=== PATIENT | female | born 2000 | race Caucasian/White ===

== ENCOUNTER 2024-07-08 12:08 | Emergency (ER) | payer OTHER, SELFPAY ==
[2024-07-08 12:17] VITALS: BP 111/71; PULSE 78; RESP 16; TEMP 36.5; O2SAT 99
[2024-07-08 12:34] LABS: Basophils Absolute Auto 0.1 K/mm3 (0.0-0.1); Basophils Percent Auto 0.3 % (0.2-1.2); Eosinophils Percent Auto 0.2 % (0-4.4); Hematocrit 44.4 % (37.0-47.0); Hemoglobin 15.8 g/dL (12.0-15.0); Immature Granulocyte Absolute 0.04 K/mm3 (0.00-0.031); Immature Granulocyte Percent A 0.3 % (0-0.5); Lymphocytes Absolute Auto 2.53 K/mm3 (0.9-3.2); Mean Corpuscular HGB Conc 35.6 g/dl (32-36); Mean Corpuscular Hemoglobin 31.2 pg (26-34); Mean Corpuscular Volume 87.6 fl (80-100); Mean Platelet Volume 9.8 fl (7.4-10.4); Monocytes Absolute Auto 0.7 K/mm3 (0.1-0.6); Monocytes Percent Auto 4.8 % (2.6-8.5); Neutrophils Absolute Auto 11.5 K/mm3 (1.3-6.7); Neutrophils Percent Auto 77.4 % (45.5-73.1); Platelet Count Result 341 k/mm3 (150-375); Red Blood Count 5.07 M/mm3 (4.2-5.4); Red Cell Distribution Width 11.9 % (11.5-14.5); White Blood Count 14.9 K/mm3 (4.5-10.0)
--- NOTE | 2024-07-08 12:37 | PC.NURSE ---
pt repots that they are unable to urinate at this time to do a bedside test. educated pt to use call light with any urge to provide urine for test.
[2024-07-08 12:46] LABS: Alanine Aminotransferase 15 U/L (6-35); Albumin Level 4.5 g/dL (3.5-5.1); Alkaline Phosphatase 64 U/L (38-126); Anion Gap 16 mmol/L (4-12); Aspartate Amino Transferase 17 U/L (14-36); Bilirubin,Total 0.9 mg/dL (0.2-1.3); Blood Urea Nitrogen 12 mg/dL (7-17); Calcium 9.5 mg/dL (8.4-10.2); Carbon Dioxide 17 mmol/L (22-30); Chloride 105 mmol/L (98-107); Estimated CRCL calculation 140 ml/min; Estimated Glomerular Filt Rate > 60; Glucose 82 mg/dL (65-110); Potassium 4.1 mmol/L (3.4-5.0); Sodium 138 mmol/L (137-145)
--- OUTSIDE RECORDS SUMMARY | 2024-07-08 12:46 | XMS_ITS | Encounter Summary ---
Author Organization [facility] Address [facility] [place] [address] Care Team Providers Care Senior Program Planner Name Role Phone None, Provider Primary Care Provider Unavaila ble Encounter Details Date Type Department Care Team (Late st Contact Info) Description 12/24/2002 Abstract [facility] Conversion Md, Generic Conversion, Social History Tobacco Use Types Packs/Day Years Used Date Smoking Tobacco: Never Assessed Comments Unknown Sex and Gender Information Value Date Recorded Sex Assigned at Not on file Legal Sex Female 4:46 PM CDT Gender Identity Not on file Sexual Orientation Not on file documented as of this encounter Plan of Treatment Not on file documented as of this encounter Visit Diagnoses Not on filedocumented in this encounter Additional Health Concerns Infection Onset Date Last Indicated Resolved Time COVID-19 Rule Out 06/08/2021 06/08/2021 06/08/2021 10:03 AM [employer] COVID-19 Rule Out 10/07/2021 10/07/2021 10/07/2021 7:57 AM CDT documented as of this encounter Care Teams Senior Program Planner Relationship Specialty Start Date End Date None, Provider, PCP - General 06/08/21 documented as of this encounter
--- OUTSIDE RECORDS SUMMARY | 2024-07-08 12:46 | XMS_ITS | Clinical Summary ---
Author Organization [facility] Address [facility] [place] [address] Care Team Providers Care Healthcare Architect Name Role Phone None, Provider MD Primary Care Provider Unavaila ble Allergies No known active allergies Medications ondansetron 4 MG disintegrating tablet Take 1 tablet (4 mg total) by mouth every 8 (eight) hours as needed. 10 tablet 2 Active Social History Tobacco Use Types Packs/Day Years Used Date Smoking Tobacco: Never Smokeless Tobacco: Never Alcohol Use Standard Drinks/Week Comments Never 0 (1 standard drink = 0.6 oz pur e alcohol) AUDIT-C Answer Date Recorded Frequency of Alcohol Consumption Never 07/27/2019 Average Number of Drinks Not on file 020 Frequency of Binge Drinking Not on file 12/2019 Comments Unknown Sex and Gender Information Value Date Recorded Sex Assigned at Not on file Legal Sex Female 4:46 PM CDT Gender Identity Not on file Sexual Orientation Not on file Last Filed Vital Signs Vital Sign Reading Time Taken Comments Blood Pressure 122/74 10/17/2023 8:30 AM CDT Pulse 79 10/17/2023 8:00 AM CDT Temperature 36.3 C (97.4 F) 10/17/2023 6:55 AM CDT Respiratory Rate 18 10/17/2023 8:00 AM CDT Oxygen Saturation 98% 10/17/2023 8:30 AM CDT Inhaled Oxygen Concentration - - Weight 102.1 kg (225 lb) 10/17/2023 6:55 AM CDT Height 167.6 cm (5' 6 ) 10/17/2023 6:55 AM CDT Body Mass Index 36.32 10/17/2023 6:55 AM CDT Plan of Treatment Health Maintenance Due Date Last Done Comments Annual Physical 2003 HPV Vaccines (1 - 3-dose series) 2015 Hepatitis C 2018 DTaP, Tdap and Td Vaccines (5 - Td or Tdap) 02/21/2022 02/22/2012, 04/25/2001, 2000, Additional history exists COVID-19 Vaccine ( season) 2024 Influenza Adult (#1) 2024 Cervical Cancer Screening Pap Smear (Age 21 to 29) Every 3 Years 09/20/2025 09/20/2022 Cervical Cancer Screening 09/20/2025 Hepatitis B Vaccines Completed 2000, 2000, 2000 Pneumococcal Vaccine: Pediatrics (0 to 5 Years) and At-Risk Patients (6 to 64 Years) Aged Out 04/25/2001, 2000, 2000 No longer eligible based on patient's age to complete this topic Meningococcal B Vaccine Aged Out No l onger eligible based on patient's age to complete this topic Meningococcal Vaccine Aged Out No thomas torito eligible based on patient's age to complete this topic RSV Immunizations Under 20 Months Aged Out No longer eligible based on patient's age to complete this topic Procedures Procedure Name Priority Date/Time Associated Diagnosis Comments CYTOPATH CERV/VAG THIN LAYER Routine 09/20/2022 8:33 AM CDT from Last 3 Months or Most Recently Relevant to Health Maintenance Results * Cytopath Cerv/Vag Thin Layer (09/20/2022 8:33 AM CDT) THIN PREP PAP [address] [id number] Department of Pathology Pathology Report CERVICAL/VAGINAL PAP SMEAR REPORT Name: KODY RONQUILLO Age: 12 2000 (Age: 22) Location: [facility] Sex: F Collected Date: 09/20/2022 [facility] #: [id number] Date Received: 09/22/2022 Date Reported: 09/22/2022 Provider: KADI YOST MD INTERPRETATION ABNORMAL RESULT CERVICAL/ENDOCER VICAL: SATISFACTORY FOR EVALUATION. ENDOCERVICAL/TRA NSFORMATION ZONE COMPONENT PRESENT. ATYPICAL SQUAMOUS CELLS OF UNDETERMINED SIGNIFICANCE. Electronically Signed Out ROXANNA Jorgensen, CT (ASCP) CLINICAL HISTORY Z12.4 PAP AND SILO OPERATOR SURGICAL HISTORY-UNKNOWN ThinPrep Pap Test Only Date of Last Menstrual Period: UNKNOWN Menstrual Status: Irregular SPECIMEN SUBMITTED CERVICAL/ENDOCER VICAL Specimen Received:1 Thin Prep Vial, Image Assisted Pap (SMD) Please note: The Pap smear is not a diagnostic test. It is a screening test. Negative results on combined screening (Pap test and HPV-DNA) have a high negative predictive value (99.1-100 percent) for cervical cancer. The pap test is not effective in detecting cervical adenocarcinoma. [facility] 09/20/2022 8:33 AM CDT 09/22/2022 8:33 AM CDT Comment:CERVICAL/ENDOCERVICA L us Kadi Marina MD PATHOLOGY/CYTOLOGY ORDERABL ES Final Result [facility] [address] [place] [address], from Last 3 Months or Most Recently Relevant to Health Maintenance [place] [address] [place] [address] Care Teams Healthcare Architect Relationship Specialty Start Date End Date None, Provider, PCP - General 06/08/21
[2024-07-08 13:09] LABS: Influenza A QL RT-PCR Negative (Negative); Influenza B QL RT-PCR Negative (Negative); RSV RNA, RT-PCR Negative (Negative); SARS-CoV-2 RNA PCR Negative (Negative)
[2024-07-08] MEDS: ONDANSETRON INJ 4 MG/2 ML VIAL IV PUSH (13:26)
[2024-07-08] MEDS: SODIUM CHLORIDE 0.9% IV 1,000 ML 999 ML IV CONT ×2 (13:26→14:17)
--- NOTE | 2024-07-08 13:33 | ED.GENADULT ---
HPI - General Adult General Chief complaint: Nausea/Vomiting/Diarrhea Stated complaint: n/v 6-7 weeks Time Seen by Provider: 07/08/24 12:21 History of Present Illness HPI narrative: [age] female presented to the emergency department for evaluation for nausea vomiting diarrhea that is been worsening over the last 2-3 days. Patient did have a positive test and suspect she is approximately 6-7 weeks with her last menstrual period being May 23. This is the patient's 2nd with her 1st being uneventful and occurring approximately 8 years ago. Patient does describe some epigastric and left upper quadrant cramping with emesis but denies any lower abdominal pain, patient denies any vaginal bleeding vaginal discharge. Patient denies any pain with urination. At time of evaluation patient appears to be an no distress. Related Data Allergies Allergy/AdvReac Type Severity Reaction Status Date / Time No Known Allergies Allergy Verified 07/08/24 12:09 Review of Systems Review of Systems: All systems reviewed & are unremarkable except as noted in HPI and below Exam Narrative: APPEARANCE: Well appearing, no pain, no distress, well-nourished. HEAD: normocephalic, atraumatic. EYES: PERRLA/EOMI, conjunctivae clear. NOSE: Normal no drainage EARS:TMS clear with good light reflex. THROAT: Pharynx clear, no exudate. NECK: Supple. No adenopathy, no masses. RESPIRATORY: Airway patent, respirations nonlabored. Clear to auscultation bilaterally, no rales, rhonchi, wheezing. CARDIOVASCULAR: Regular rate and rhythm without murmurs rubs or gallops. ABDOMINAL: Epigastric tenderness to palpation with no rebound or guarding, no suprapubic tenderness to palpation MUSCULOSKELETAL: Moves all extremities. Strength/ROM intact, No edema, No calf tenderness. NEURO: Alert. Cranial nerves II through XII intact. Good gait. Good coordination SKIN: Warm, dry. Normal Color Course Vital Signs Vital signs: Vital Signs Temperature 97.7 F 07/08/24 12:17 Pulse Rate 78 07/08/24 12:17 Respiratory Rate 16 07/08/24 12:17 Blood Pressure 111/71 07/08/24 12:17 Pulse Oximetry 99 07/08/24 12:17 Oxygen Delivery Room Air 07/08/24 12:17 Temperature 97.7 F 07/08/24 12:17 Pulse Rate 77 07/08/24 14:17 Respiratory Rate 18 07/08/24 14:17 Blood Pressure 109/73 07/08/24 14:17 Pulse Oximetry 100 07/08/24 14:17 Oxygen Delivery Room Air 07/08/24 12:17 Medical Decision Making MDM Narrative Medical decision making narrative: [age] old female that is approximately 6-7 weeks present to the emergency department for evaluation for nausea and vomiting and diarrhea for the past 3 days. Patient does have a leukocytosis of 14.9 and hemoglobin of 15.8. Patient does have an anion gap of 16 with normal BUN and creatinine. Patient has no elevated glucose. Patient is not diabetic. Patient does have +4 ketones in her urine along with high white blood cells and high bacteria. Patient was negative for influenza COVID and RSV. Patient is being started on antibiotics for suspected underlying urinary tract infection. Patient is being treated with 2 L of IV fluids. Differential Diagnosis Differential Diagnosis: Urinary tract infection, dehydration, COVID, RSV, influenza, hyperemesis gravidarum Vital Signs Vital Signs: Vital Signs Temperature 97.7 F 07/08/24 12:17 Pulse Rate 78 07/08/24 12:17 Respiratory Rate 16 07/08/24 12:17 Blood Pressure 111/71 07/08/24 12:17 Pulse Oximetry 99 07/08/24 12:17 Oxygen Delivery Room Air 07/08/24 12:17 Temperature 97.7 F 07/08/24 12:17 Pulse Rate 77 07/08/24 14:17 Respiratory Rate 18 07/08/24 14:17 Blood Pressure 109/73 07/08/24 14:17 Pulse Oximetry 100 07/08/24 14:17 Oxygen Delivery Room Air 07/08/24 12:17 Lab Data Lab results reviewed: Yes I reviewed the patient's lab results. 07/08/24 12:28 07/08/24 12:28 Labs: Lab Results 07/08/24 07/08/24 07/08/24 Range/Units 12:28 13:39 13:40 WBC 14.9 H (4.5-10.0) K/mm3 RBC 5.07 (4.2-5.4) M/mm3 Hgb 15.8 H (12.0-15.0) g/dL Hct 44.4 (37.0-47.0) % MCV 87.6 (80-100) fl MCH 31.2 (26-34) pg MCHC 35.6 (32-36) g/dl RDW 11.9 (11.5-14.5) % Plt Count 341 (150-375) k/mm3 MPV 9.8 (7.4-10.4) fl Immature Gran % (Auto) 0.3 (0-0.5) % Neut % (Auto) 77.4 H (45.5-73.1) % Lymph % (Auto) 17.0 L (18.3-44.2) % Jack % (Auto) 4.8 (2.6-8.5) % Eos % (Auto) 0.2 (0-4.4) % Baso % (Auto) 0.3 (0.2-1.2) % Lymph # (Auto) 2.53 (0.9-3.2) K/mm3 Jack # (Auto) 0.7 H (0.1-0.6) K/mm3 Eos # (Auto) 0.0 (0-0.3) K/mm3 Baso # (Auto) 0.1 (0.0-0.1) K/mm3 Abs Immat Gran (auto) 0.04 H (0.00-0.031) K/mm3 Absolute Neuts (auto) 11.5 H (1.3-6.7) K/mm3 Absolute Nucleated RBC 0.000 (0.0-0.012) K/mm3 Nucleated RBC % 0.0 (0.0-0.2) % Sodium 138 (137-145) mmol/L Potassium 4.1 (3.4-5.0) mmol/L Chloride 105 (98-107) mmol/L Carbon Dioxide 17 L (22-30) mmol/L Anion Gap 16 H (4-12) mmol/L BUN 12 (7-17) mg/dL Creatinine 0.60 L (0.7-1.0) mg/dL Estim Creat Clear Calc 140 ml/min Estimated GFR > 60 (59 - ) Glucose 82 (65-110) mg/dL Calcium 9.5 (8.4-10.2) mg/dL Total Bilirubin 0.9 (0.2-1.3) mg/dL AST 17 (14-36) U/L ALT 15 (6-35) U/L Alkaline Phosphatase 64 (38-126) U/L Total Protein 8.0 (6.3-8.2) g/dL Albumin 4.5 (3.5-5.1) g/dL Beta HCG, Quant 09572.00 mIU/ML Urine Color Dark yellow (Yellow) Urine Appearance Cloudy H (Clear) Urine pH 5.5 (5.0-9.0) Ur Specific [place] 1.031 (1.001-1.035) Urine Protein 1+ H (Negative) mg/dL Urine Glucose (UA) Negative (Negative) mg/dL Urine Ketones 4+ H (Negative) mg/dL Ur Blood (Man) Negative (Negative) Urine Nitrate Negative (Negative) Urine Bilirubin Negative (Negative) Urine Urobilinogen 1.0 (<2.0) mg/dL Leukocyte Esterase Rfl 2+ H (Negative) PATRICK/UL Urine RBC 0-2 (0-2) /hpf Urine WBC 51-100 H (0-3) /hpf Ur Squamous Epith Cells Many H (Few) /hpf Urine Bacteria 4+ H /hpf Urine Casts 0-2 POC Urine HCG, Qual Positive (Negative) Influenza A (RT-PCR) Negative (Negative) Influenza B (RT-PCR) Negative (Negative) RSV (RT-PCR) Negative (Negative) SARS-CoV-2 RNA (RT-PCR) Negative (Negative) Discharge Plan Discharge Clinical Impression: Nausea vomiting and diarrhea, Urinary tract infection Patient Disposition: Home, Self-Care Condition: Stable Instructions: Antibiotic Form, Urinary Tract Infection in Women (DC), Clear Liquid Diet (ED), Acute Nausea and Vomiting (ED) Additional Instructions: Clear liquid diet for the next 1-3 days. Zofran as needed for nausea control. Antibiotic as directed for the urinary tract infection. Have close follow-up with your primary care physician and with OB Gyne. If you have any worsening symptoms then please call or return to the emergency department. Patient Language: Pashto Prescriptions: New cephalexin 500 mg capsule 500 mg PO Q8H 7 Days Qty: 21 0RF Follow-up/Referrals: UNKNOWN,DOCTOR [Primary Care Provider] -
[2024-07-08 13:44] LABS: BEDSIDEPREGUCG Positive (Negative)
[2024-07-08 13:51] LABS: Add Urine Microscopic? YES; Appearance Urine Cloudy (Clear); Bacteria Urine 4+ /hpf; Bilirubin Urine Negative (Negative); Blood Urine Negative (Negative); Color Urine Dark Yellow (Yellow); Glucose Urine UA Negative (Negative); Ketones Urine 4+ mg/dL (Negative); Leukocyte Esterase Ur 2+ LEU/UL (Negative); Nitrate Urine Negative (Negative); Non Pathogenic Casts 0-2; Protein Urine 1+ mg/dL (Negative); RBC Urine 0-2 /hpf (0-2); Specific Grav Ur 1.031 (1.001-1.035); Squamous Epithelial Cell Urine Many /hpf (Few); WBC Urine 51-100 /hpf (0-3); pH Urine 5.5 (5.0-9.0)
[2024-07-08 14:17] VITALS: BP 109/73; PULSE 77; RESP 18; O2SAT 100
== END 2024-07-08 15:40 | disposition home or self-care (01) ==
PROVIDERS: Physician Assistant; Emergency Provider Emergency Medicine
DX: O21.0 Mild hyperemesis gravidarum (principal); Z3A.00 Weeks of gestation of pregnancy not specified; O23.40 Unspecified infection of urinary tract in pregnancy, unspecified trimester; N39.0 Urinary tract infection, site not specified; Z20.822 Contact with and (suspected) exposure to COVID-19
CPT/HCPCS: 36415; 80053; 81001; 81025; 84702; 85025; 87637; 96361; 96365; 96375; 99284; J0696; J2405; J7030

== ENCOUNTER 2024-07-31 09:36 | Emergency (ER) | payer OTHER, SELFPAY ==
[2024-07-31] VITALS (13 sets, daily range): BP systolic 110–128; BP diastolic 68–78; PULSE 56–89; RESP 14–17; TEMP 36.4; O2SAT 97–100
--- NOTE | ~2024-07-31 | XR_ITS ---
EXAMINATION: XR chest 1V portable DATE: 07/31/2024 12:30 INDICATION: Hematemesis. . TECHNIQUE: A single frontal view of the chest was obtained. COMPARISON: None. FINDINGS: There is no pneumonia, pleural effusion, or pneumothorax. The heart size is normal. IMPRESSION: 1. No acute cardiopulmonary disease. Reviewed, dictated and finalized at location B.
[2024-07-31 10:19] LABS: Basophils Percent Auto 0.4 % (0.2-1.2); Eosinophils Percent Auto 0.3 % (0-4.4); Hematocrit 40.7 % (37.0-47.0); Hemoglobin 14.2 g/dL (12.0-15.0); Immature Granulocyte Absolute 0.05 K/mm3 (0.00-0.031); Immature Granulocyte Percent A 0.4 % (0-0.5); Mean Corpuscular HGB Conc 34.9 g/dl (32-36); Mean Corpuscular Hemoglobin 30.6 pg (26-34); Mean Corpuscular Volume 87.7 fl (80-100); Mean Platelet Volume 9.7 fl (7.4-10.4); Monocytes Absolute Auto 0.4 K/mm3 (0.1-0.6); Monocytes Percent Auto 3.4 % (2.6-8.5); Neutrophils Absolute Auto 8.8 K/mm3 (1.3-6.7); Neutrophils Percent Auto 78.5 % (45.5-73.1); Platelet Count Result 267 k/mm3 (150-375); Red Blood Count 4.64 M/mm3 (4.2-5.4); Red Cell Distribution Width 12.4 % (11.5-14.5); White Blood Count 11.2 K/mm3 (4.5-10.0)
[2024-07-31 10:22] LABS: BEDSIDEPREGUCG Positive (Negative)
[2024-07-31 10:31] LABS: Alanine Aminotransferase 17 U/L (6-35); Albumin Level 4.2 g/dL (3.5-5.1); Alkaline Phosphatase 55 U/L (38-126); Anion Gap 9 mmol/L (4-12); Aspartate Amino Transferase 17 U/L (14-36); Bilirubin,Total 0.6 mg/dL (0.2-1.3); Blood Urea Nitrogen 7 mg/dL (7-17); Calcium 9.3 mg/dL (8.4-10.2); Carbon Dioxide 21 mmol/L (22-30); Chloride 106 mmol/L (98-107); Estimated CRCL calculation 143 ml/min; Estimated Glomerular Filt Rate > 60; Glucose 80 mg/dL (65-110); Lipase 89 U/L (23-300); Potassium 4.1 mmol/L (3.4-5.0); Sodium 136 mmol/L (137-145)
[2024-07-31 10:33] LABS: Add Urine Microscopic? YES; Appearance Urine Cloudy (Clear); Bacteria Urine 3+ /hpf; Bilirubin Urine Negative (Negative); Blood Urine Negative (Negative); Color Urine Yellow (Yellow); Glucose Urine UA Negative (Negative); Ketones Urine 2+ mg/dL (Negative); Leukocyte Esterase Ur 3+ LEU/UL (Negative); Nitrate Urine Negative (Negative); Non Pathogenic Casts 0-2; Protein Urine Trace mg/dL (Negative); RBC Urine 0-2 /hpf (0-2); Specific Grav Ur 1.024 (1.001-1.035); Squamous Epithelial Cell Urine Moderate /hpf (Few); pH Urine 6.5 (5.0-9.0)
--- OUTSIDE RECORDS SUMMARY | 2024-07-31 10:58 | XMS_ITS | Clinical Summary ---
Author Organization [facility] Address [facility] [place] [address] Care Team Providers Care Straw Baler Name Role Phone None, Provider MD Primary [...] (09/20/2022 8:33 AM CDT) THIN PREP PAP [address] [address] Department of Pathology Pathology Report CERVICAL/VAGINAL PAP SMEAR REPORT Name: KODY RONQUILLO Age: 12 2000 (Age: 22) Location: [facility] Sex: F Collected Date: 09/20/2022 [facility] #: [id number] Date Received: 09/22/2022 Date Reported: 09/22/2022 Provider: KADI YOST MD INTERPRETATION ABNORMAL RESULT CERVICAL/ENDOCER VICAL: SATISFACTORY FOR EVALUATION. ENDOCERVICAL/TRA NSFORMATION ZONE COMPONENT PRESENT. ATYPICAL SQUAMOUS CELLS OF UNDETERMINED SIGNIFICANCE. Electronically Signed Out ROXANNA Jorgensen, CT (ASCP) CLINICAL HISTORY Z12.4 PAP AND DIETARY COOK SURGICAL HISTORY-UNKNOWN ThinPrep Pap Test Only Date [...] is not effective in detecting cervical adenocarcinoma. [facility] 09/20/2022 8:33 AM CDT 09/22/2022 8:33 AM CDT Comment:CERVICAL/ENDOCERVICA L us Kadi Marina MD PATHOLOGY/CYTOLOGY ORDERABL ES Final Result [facility] [address] [place] [address], from Last 3 Months or Most Recently Relevant to Health Maintenance [place] [address] [place] [address] Care Teams Straw Baler Relationship Specialty Start Date End Date None, Provider, PCP - General 06/08/21
--- OUTSIDE RECORDS SUMMARY | 2024-07-31 10:58 | XMS_ITS | Data Portability ---
Author Organization [facility] Address [address] [place] [address] Assessment Encounter Date Assessment Date Assessment LastModified by Organization Details LastModified Time 07/29/2024 07/29/2024 Patient is ___weeks . Discussed plan. [email or web address] Not available 07/29/2024 11:23:38 Plan of Treatment Reminders Order Date Submit Date Provider Last Modified By Organization Details Last Modified Time Details Appointments U/S OB FIRST LOOK 2024 02:30P M ULTRASOUND Not available Not available Not available OB NEW 2024 03:00P M Tuan JONES MD Not available Not available Not available Lab None recorde d. Referral None recorde d. Procedures None recorde d. Surgeries None recorde d. Imaging None recorde d. Medication Orders ondanse ranjan 8 mg disinte grating tablet 2024 025 [id number], [address], [place], [id number], 07/29/2024 11:56:05 Patient TargetsNo targets recorded. Patient InstructionsNo instructions recorded. Reason for Referral None Reported. Results Created Date Observation Date Name Description Value Unit Range Abnormal Flag Note LastModifiedBy Organization Detail LastModifiedTime 07/30/19 25 07/29/2024 US, obste tric, follo w-up No observ ation record ed. [facility] [id number], [place], [address], 07/29/2024 16:55:01 Result Notes None recorded. Procedures Surgical History Date Name Laterality Status Provider Name and Address Organization Details Recorded Time 06/30/2016 Date of Last Pap Smear completed NICHOLAS Christiansen [facility] 07/29/2024 11:22:11 Imaging Results Imaging Date Name Status LastModified by Organiz ation Details LastModified Time 07/29/2024 US, obstetric, follow-up completed Melissa [address], [place], [address], 07/29/2024 16:55:01 Procedure Notes None recorded. Medical Equipment None Reported. Allergies No known drug allergies Medications Name Sig Start Date Stop Date Status Note LastModified by Organization Details LastModified Time ondansetron HCl 4 mg tablet TAKE 1 TABLET ORAL ROUTE EVERY 8 HOURS 07/29 completed Not Available Not Available Not Available metronidazo le 500 mg tablet TAKE 1 TABLET BY MOUTH TWICE A DAY FOR 7 DAYS 07/29 completed Not Available Not Available Not Available ondansetron 8 mg disintegrat ing tablet Place 1 tablet twice a day by transling ual route. 2024 active Not Available Not Available Not Avai lable cephalexin 500 mg capsule 500 MG ORALLY EVERY 8 HOURS FOR 7 DAYS 07/29 completed Not Available Not Available Not Available ibuprofen 400 mg tablet TAKE 1 TABLET BY MOUTH EVERY 6 HOURS NEEDED FOR PAIN. 07/29 completed Not Available Not Available Not Available active Not Available Not Avai lable Not Available Vitals Date Recorded Body weight Systolic blood pressure Diastolic blood pressure Provider Name and Address Organization Details Last Updated DateTime 07/29/2024 34388.44 g 110 mm[Hg] 72 mm[Hg] NICHOLAS Christiansen [facility] 07/29/2024 11:21:42 Date Recorded Body mass index (BMI) Body height Provider Name and Address Organization Details Last Updated DateTime 07/29/2024 32.1 kg/m2 170.18 cm Meghan Pitts [facility] 07/29/2024 11:25:05 Social History Question Answer Notes LastModified by Organizat ion Details LastModified Time Tobacco Smoking Status Never Smoker NICHOLAS Little null, [facility] 07/29/2024 11:11:22 Are You Blind Or Do You Have Difficulty Seeing? No [email or web address] Information n ot available 07/29/2024 In The 14 Days Before Symptom Onset, Have You Had Close Contact With A Laboratory-confirm ed COVID-19 While That Case Was Ill? No [email or web address] Information n ot available 07/29/2024 In The 14 Days Before Symptom Onset, Have You Had Close Contact With A Person Who Is Under Investigation For COVID-19 While That Person Was Ill? No [email or web address] Information not available 07/29/2024 Have You Been To An Area Known To Be High Risk For COVID-19? No [email or web address] Information not available 07/29/2024 Are You Deaf Or Do You Have Serious Difficulty Hearing? No [email or web address] Information not available 07/29/2024 What Type Of Diet Are You Following? REGULAR [email or web address] Information n ot available 07/29/2024 What Is The Highest Grade Or Level Of School You Have Completed Or The Highest Degree You Have Received? [id number] [email or web address] Information not available 07/29/2024 Are There Any Guns Present In Your Home? No [email or web address] Information not available 07/29/2024 Do You Use Your Seat Belt Or Car Seat Routinely? Yes [email or web address] Information not available 07/29/2024 Are You Sexually Active? Yes [email or web address] Information not available 07/29/2024 Do You Have Smoke And Carbon Monoxide Detectors In Your Home? Yes [email or web address] Information not available 07/29/2024 Do You Feel Stressed (tense, Restless, Nervous, Or Anxious, Or Unable To Sleep At Night)? [id number] Information not available 07/29/2024 Do You Use Sunscreen Routinely? Yes Information not available 07/29/2024 Sex: Unknown Functional Status Question Answer Note LastModified by Organizat ion Details LastModified Time Do you have difficulty walking or climbing stairs? No [email or web address] Information not available 07/29/2024 Are you able to walk? YESWOREST [email or web address] Information not available 07/29/2024 Are you able to care for yourself? Yes [email or web address] Information not available 07/29/2024 Do you have difficulty dressing or bathing? Yes [email or web address] Information not available 07/29/2024 What is your exercise level? Occasional Information not available 07/29/2024 Mental Status None recorded. Family History Relationship Description Onset Age of this Age Resolved Age Notes LastModified by Organization Details LastModified Time Sister Asthma [email or web address] Not available 07/29/2024 10:58:53 Maternal Grandmother Asthma [email or web address] Not available 07/19 10:58:51 Maternal Grandmother Malignant tumor of breast [email or web address] Not available 2024 11:01:13 Maternal Grandfather Hypertensive disorder [email or web address] Not available 2024 11:01:30 Maternal Grandfather Hypercholest erolemia [email or web address] Not available 2024 11:01:40 Medical History Condition Response Allergies (Food, seasonal, environmental ) N Other N Breast Cancer N Drug/Latex Allergies/Reactions N Blood Transfusion N Dermatologic Disorders N Lung Disease N Defects or Inherited Disease N Breast Problem N Gestational Diabetes N Hematologic disorders N Anesthesia Complications N History of STI N Deep Vein Thrombosis N Polycystic ovary syndrome N Anxiety Disorder N Autoimmune disease N Arthritis N Infertility N Polyps N Acid Reflux (GERD) N History of abnormal pap N Cancer N Stroke N Varicosities N Neurologic/Epilepsy N Endometriosis N High Cholesterol N Headaches N Fibromyalgia N Kidney Disease N Heart Problems N Kidney or Bladder Problems N Thyroid Problems N GI Problems N Eating Disorder N Anemia N Art (IVF or FET) N Psychiatric Illness N Ovarian Cancer N Diabetes N Pulmonary (TB, Asthma) N Hepatitis/Liver Disease N No Past Medical History Y Eczema N Urinary Tract Infection N Abuse/Domestic Violence N Asthma N Trauma/Violence N Depression/ depression N Heart Disease N Pre-Eclampsia N Hypertension N Osteoporosis N Thrombophilias N Gynecological History Statement/Question Response Abnormal Pap N Date of Last Mammogram Flow Moderate Date of LMP 05/23/2024 Was last menstrual period normal Y STIs/STDs N HPV Vaccine N Colposcopy Current Control Method Age at First Child 16 Are cycles usually normal Y Frequency of Cycle (Q days) 28 Sexually Active? Y Menses Monthly Y Age of first menstrual cycle 11 Date of Last Pap Smear 06/30/2016 Sexual Problems? N LMP Definite Obstetrics History GPAL:G 1 P 1 0 0 1 Type Value Full Term 1 Living 1 Total 1 Past Encounters Encounter ID Performer Location Encounter Start Date Encounter Closed Date Diagnosis/Indication Diagnosis SNOMED-CT Code Diagnosis ICD10 Code Diagnosis Note [id number] Sabine Nunn [facility] [address] [address] 07/29/2024 10:33:16 07/29/2024 11:08:59 [id number] Anil Jones MD [facility] [address] [address] 07/29/2024 10:36:48 07/29/2024 12:14:56 Nausea and vomiting 38998515 R11.2 Amenorrhea 77387608 N91. 2 this patient is a 24-year-ol d female who presents for amenorrhea . She is a positive test. Ultrasound revealed a 1st trimester gestation. Patient has no complaints . We talked about early care. Talked about genetic screening. We talked about her ultrasound results. We talked about the 12 week ultrasound that has genetic screening components . She was given recommenda tions on exercise, diet, over-the-c ounter medication s. We reviewed her obstetric history. We reviewed her medical history. We reviewed her social history. She will begin routine care at her next visit. Health Concerns Section Related Observation LastModified by Organization Detai ls LastModified Time None Recorded Concern Status LastModified by Organization Details LastModified Time None Recorded Advance Directives Directive None Recorded Payers Encounter Date Sequence Insurance Name Policy Number Policy Dye Covered Member ID Dye Member ID Guarantor Name 07/29/2024 1 [employer] [id number] Kathi Bee [id number] Kathi Bee 07/29/2024 1 [employer] [id number] Kathi Bee [id number] Kathi Bee Notes Date Note Type Note Provider Name and Address Organization Details Recorded Time 07/29/2024 text/html this patient is a 24-year-old female who presents for amenorrhea. She is a positive test. Ultrasound revealed a 1st trimester gestation. Patient has no complaints. We talked about early care. Talked about genetic screening. We talked about her ultrasound results. We talked about the 12 week ultrasound that has genetic screening components. She was given recommendations on exercise, diet, [id number]-ioipvax medications. We reviewed her obstetric history. We reviewed her medical history. We reviewed her social history. She will begin routine care at her next visit. Anil Jones MD [address], [place], [address], [place] [facility] 07/29/2024 12:10:31 OBGyn Episode Ob Episode Information Episode Created Date Number of Fetuses Patient Bloodtype Patient rh Status Prepregnancy Weight lbs Domestic Partner Domestic Partner Phone Father Name Bog Worker Status 07/30/19 25 1 CLOSED Fetus Data First Name Last Name Admitted to NICU Weight (g) Sex Living Outcome Pediatric Complications Fetus ID Race Codes Race Delivery Type 3798.83 3 F Full Term [id number] Vaginal Delivery Demond Calculation Initial Demond Date Initial Exam Date Initial Exam Provider Initial Ultrasound Date Last Menstrual Period Date Ultra Sound Weeks Gestation 0 Eighteen To Twenty Week Demond Update Ultra Sound Date Fundal Height At Umbil Quickening Date Ultra Sound Latest Weeks Gestation Final Demond Confirmed By Final Demond Confirmed Date Final Demond Date Ultra Sound Latest Days Gestation 0 0 Menstrual History Last Menstrual Date Menses Monthly On Bcp Conception Prior Menses Frequency Hcg Plus Date Menarche Onset Age Delivery Information Delivery Date Delivery Type Labor Anesthesia Weeks Gestation Incision Type Labor Labor Length Hrs Delivered By Post Complications Tubal Sterilization Discharge Date Comments 7 41 Discharge Information Feeding Method Contraceptive Method Maternal HG B and HCT Levels
--- OUTSIDE RECORDS SUMMARY | 2024-07-31 10:58 | XMS_ITS | Encounter Summary ---
Author Organization [facility] Address [facility] [place] [address] Care Team Providers Care Genetic Technologist Name Role Phone None, Provider Primary Care Provider Unavaila ble Encounter Details Date Type Department Care Team (Late st Contact Info) Description 12/24/2002 Abstract [facility] Conversion Md, Generic Conversion, Social History [...] Rule Out 06/08/2021 06/08/2021 06/08/2021 10:03 AM FERMENTATION SCIENTIST COVID-19 Rule Out 10/07/2021 10/07/2021 10/07/2021 7:57 AM CDT documented as of this encounter Care Teams Genetic Technologist Relationship Specialty Start Date End Date None, Provider, PCP - General 06/08/21 documented as of this encounter
--- NOTE | 2024-07-31 11:43 | ED_ITS ---
HPI - Abdominal Pain General Chief Complaint: Abdominal Pain Stated Complaint: 9 weeks preg, abd cramping, vomiting Time Seen by Provider: 07/31/24 10:18 History of Present Illness HPI narrative: 25-year-old female who is , currently 9 weeks presents to the emergency department for epigastric abdominal pain, nausea vomiting. Patient states she has had morning sickness throughout this and is not on normal for her. She states she had an episode of vomiting earlier today with a dime-sized amount of bright red blood which concerned her and prompted her to come to the ER. She states since then she has had vomiting that has not had any blood in it, no coffee-ground emesis. Denies melena or hematochezia. She is reporting some epigastric abdominal discomfort and nausea. Her OBGYN, Dr. Castellon, prescribed her Zofran but she has not taken this yet. She denies lower abdominal pain or cramping, vaginal bleeding or leakage of fluids, dysuria or hematuria. States she had a ultrasound 2 days ago which confirmed an IUP show no complications. Denies chest pain or dyspnea. Related Data Allergies Allergy/AdvReac Type Severity Reaction Status Date / Time No Known Allergies Allergy Verified 07/31/24 10:04 Review of Systems 2 Review of Systems: All systems reviewed & are unremarkable except as noted in HPI and below Exam 2 Narrative: GENERAL: Well-appearing, well-nourished, and in no acute distress. HEAD: Normocephalic, atraumatic. EYES: EOMI. ENT: Nares clear, no rhinorrhea or epistaxis. Mucous membranes moist. NECK: Supple. CHEST: Clear to auscultation. No respiratory distress. HEART: Regular rate and rhythm. No murmur heard. Normal peripheral pulses. ABDOMEN: Normoactive bowel sounds. Abdomen soft with minimal tenderness in epigastrium. No rebound or rigidity. No CVA tenderness. EXTREMITIES: Normal range of motion. No edema. 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 NEURO: No focal deficits. Alert and oriented x3 Course Vital Signs Vital signs: Vital Signs Temperature 97.6 F 07/31/24 09:42 Pulse Rate 89 07/31/24 09:42 Respiratory Rate 17 07/31/24 09:42 Blood Pressure 128/76 07/31/24 09:42 Pulse Oximetry 100 07/31/24 09:42 Oxygen Delivery Room Air 07/31/24 09:42 Temperature 97.6 F 07/31/24 09:42 Pulse Rate 65 07/31/24 12:51 Respiratory Rate 16 07/31/24 12:51 Blood Pressure 110/68 07/31/24 11:41 Pulse Oximetry 99 07/31/24 12:51 Oxygen Delivery Room Air 07/31/24 09:42 MDM - Abdominal Pain MDM Narrative Medical decision making narrative: 24-year-old female who is currently 9 weeks presents to emergency department for nausea and vomiting. Patient had 1 dime-sized amount of hemoptysis this morning. She has vomited since then and has not noticed any blood. Denies melena or hematochezia. Vital signs are stable. She is afebrile and nontoxic appearing. She is endorsing some epigastric abdominal discomfort. She does state that she had a ultrasound 2 days ago which confirmed an IUP and showed no complications. I do not feel we need to repeat the ultrasound today given she has no lower abdominal pain, vaginal bleeding leakage of fluids. Will obtain lab work and provide IV fluids, GI cocktail Pepcid re-evaluate. Shared decision making regarding obtaining a chest x-ray to evaluate for source of hemoptysis which shows findings concerning for for [place] pneumomediastinum. Patient agreeable with this. CBC with nonspecific leukocytosis of 11.2 which is likely reactive, normal hemoglobin of 14.2, no bandemia. Chemistries are largely unremarkable. Lipase normal. Chest x-ray shows no acute cardiopulmonary disease, no evidence of pneumomediastinum. UA indicative of UTI with 11-20 wbc's, 3+ leuk esterase, 3+ bacteriuria, also has 2+ ketones. Patient received IV fluids, GI cocktail and Pepcid with significant improvement. She is resting comfortably in exam bed tolerating p.o. intake. She has had no vomiting or episodes of hemoptysis during her over 3 hour stay in the emergency department. Given her reported frequent nausea and vomiting with this , I suspect the dime-sized amount of hemoptysis she noted today was due to a Thuy-Knight tear or possible underlying esophagitis/gastritis. Will prescribe Pepcid and have her follow-up closely with her OBGYN. She is prescribed Zofran by her Ob which I encouraged her to begin taking. Discussed increase hydration and return precautions. She is agreeable to plan verbalized understanding. Discharged in stable condition. Lab Data 07/31/24 10:13 07/31/24 10:13 Labs: Lab Results 07/31/24 07/31/24 07/31/24 Range/Units 10:13 10:19 10:20 WBC 11.2 H (4.5-10.0) K/mm3 RBC 4.64 (4.2-5.4) M/mm3 Hgb 14.2 (12.0-15.0) g/dL Hct 40.7 (37.0-47.0) % MCV 87.7 (80-100) fl MCH 30.6 (26-34) pg MCHC 34.9 (32-36) g/dl RDW 12.4 (11.5-14.5) % Plt Count 267 (150-375) k/mm3 MPV 9.7 (7.4-10.4) fl Immature Gran % (Auto) 0.4 (0-0.5) % Neut % (Auto) 78.5 H (45.5-73.1) % Lymph % (Auto) 17.0 L (18.3-44.2) % [place] % (Auto) 3.4 (2.6-8.5) % Eos % (Auto) 0.3 (0-4.4) % Baso % (Auto) 0.4 (0.2-1.2) % Lymph # (Auto) 1.90 (0.9-3.2) K/mm3 [place] # (Auto) 0.4 (0.1-0.6) K/mm3 Eos # (Auto) 0.0 (0-0.3) K/mm3 Baso # (Auto) 0.0 (0.0-0.1) K/mm3 Abs Immat Gran (auto) 0.05 H (0.00-0.031) K/mm3 Absolute Neuts (auto) 8.8 H (1.3-6.7) K/mm3 Absolute Nucleated RBC 0.000 (0.0-0.012) K/mm3 Nucleated RBC % 0.0 (0.0-0.2) % Sodium 136 L (137-145) mmol/L Potassium 4.1 (3.4-5.0) mmol/L Chloride 106 (98-107) mmol/L Carbon Dioxide 21 L (22-30) mmol/L Anion Gap 9 (4-12) mmol/L BUN 7 D (7-17) mg/dL Creatinine 0.59 L (0.7-1.0) mg/dL Estim Creat Clear Calc 143 ml/min Estimated GFR > 60 (59 - ) Glucose 80 (65-110) mg/dL Calcium 9.3 (8.4-10.2) mg/dL Total Bilirubin 0.6 (0.2-1.3) mg/dL AST 17 (14-36) U/L ALT 17 (6-35) U/L Alkaline Phosphatase 55 (38-126) U/L Total Protein 7.0 (6.3-8.2) g/dL Albumin 4.2 (3.5-5.1) g/dL Lipase 89 (23-300) U/L Urine Color Yellow (Yellow) Urine Appearance Cloudy H (Clear) Urine pH 6.5 (5.0-9.0) Ur Specific [place] 1.024 (1.001-1.035) Urine Protein Trace (Negative) mg/dL Urine Glucose (UA) Negative (Negative) mg/dL Urine Ketones 2+ H (Negative) mg/dL Ur Blood (Man) Negative (Negative) Urine Nitrate Negative (Negative) Urine Bilirubin Negative (Negative) Urine Urobilinogen 1.0 (<2.0) mg/dL Leukocyte Esterase Rfl 3+ H (Negative) PATRICK/UL Urine RBC 0-2 (0-2) /hpf Urine WBC 11-20 H (0-3) /hpf Ur Squamous Epith Cells Moderate (Few) /hpf Urine Bacteria 3+ H /hpf Urine Casts 0-2 POC Urine HCG, Qual Positive (Negative) Imaging Data Radiologist's impression: ITS Impressions Chest X-Ray 07/31/24 12:33 IMPRESSION: 1. No acute cardiopulmonary disease. Discharge Plan Discharge Clinical Impression: Nausea and vomiting during UTI (urinary tract infection) during Qualifiers: Trimester: first trimester Qualified Code(s): O23.41 - Unspecified infection of urinary tract in , first trimester Patient Disposition: Home, Self-Care Condition: Stable Instructions: Antibiotic Form, Acute Nausea and Vomiting (ED), Urinary Tract Infection in (ED) Additional Instructions: You were evaluated in the emergency department for epigastric abdominal pain, nausea and vomiting in . Your found have a urinary tract infection, please take the antibiotics as directed. Please take the Zofran that was prescribed by your OBGYN in addition to the Pepcid that I have prescribed you. Eat a bland diet such as bananas, rice, applesauce and toast. Plenty of fluids such as water, Gatorade and Pedialyte. Follow-up closely with her OBGYN. Return to the emergency department if you develop inability to keep down food or fluids, lower abdominal pain or vaginal bleeding, fever, chest pain shortness of breath, you are vomiting blood or other concerning symptoms Patient Language: Kiswahili Prescriptions: New cephalexin 500 mg capsule 500 mg PO Q6H Qty: 28 0RF famotidine 20 mg tablet 20 mg PO DAILY Qty: 30 0RF No Action cephalexin 500 mg capsule 500 mg PO Q8H 7 Days Qty: 21 0RF Follow-up/Referrals: Anil Castellon MD [Physician] - UNKNOWN,DOCTOR [Primary Care Provider] -
[2024-07-31] MEDS: FAMOTIDINE 20 MG/2 ML VIAL IV PUSH (11:53)
[2024-07-31] MEDS: SODIUM CHLORIDE 0.9% IV 1,000 ML 999 ML IV CONT (11:53)
[2024-07-31] MEDS: BELLADONNA ALK/PHENOB ELIX 10 ML, MAG HYDROX/ALUMINUM HYD/SIMETH 30 ML, LIDOCAINE 2% VI... PO (11:53)
--- OUTSIDE RECORDS SUMMARY | 2024-07-31 12:54 | XMS_ITS | Clinical Summary ---
Author Organization [facility] Address [facility] [place] [address] Care Team Providers Care Counseling Program Leader Name Role Phone None, Provider MD Primary [...] (09/20/2022 8:33 AM CDT) THIN PREP PAP [address] [address] Department of Pathology Pathology Report CERVICAL/VAGINAL PAP SMEAR REPORT Name: KODY RONQUILLO Age: 12 2000 (Age: 22) Location: [facility] Sex: F Collected Date: 09/20/2022 [facility] #: [id number] Date Received: 09/22/2022 Date Reported: 09/22/2022 Provider: KADI YOST MD INTERPRETATION ABNORMAL RESULT CERVICAL/ENDOCER VICAL: SATISFACTORY FOR EVALUATION. ENDOCERVICAL/TRA NSFORMATION ZONE COMPONENT PRESENT. ATYPICAL SQUAMOUS CELLS OF UNDETERMINED SIGNIFICANCE. 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 [facility] 09/20/2022 8:33 AM CDT 09/22/2022 8:33 AM CDT Comment:CERVICAL/ENDOCERVICA L us Kadi Marina MD PATHOLOGY/CYTOLOGY ORDERABL ES Final Result [facility] [address] [place] [address], from Last 3 Months or Most Recently Relevant to Health Maintenance [place] [address] [address] [address] Care Teams Counseling Program Leader Relationship Specialty Start Date End Date None, Provider, PCP - General 06/08/21
--- OUTSIDE RECORDS SUMMARY | 2024-07-31 12:54 | XMS_ITS | Encounter Summary ---
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
--- NOTE | 2024-07-31 13:06 | PC.NURSE ---
patient was given crackers and a sprite to PO challenge at this time
[2024-07-31] MEDS: CEPHALEXIN 500 MG CAPSULE PO (13:16)
[2024-07-31] MEDS: METOCLOPRAMIDE HCL INJ 10 MG/2 ML VIAL IV PUSH (13:16)
[2024-07-31] MEDS: ONDANSETRON INJ 4 MG/2 ML VIAL IV PUSH (13:33)
--- NOTE | 2024-07-31 14:34 | PC.NURSE ---
patient states that she is having less nausea at this time. patient was provided crackers and a drink to po challenge at this time
== END 2024-07-31 14:46 | disposition home or self-care (01) ==
PROVIDERS: Emergency Medicine; Emergency Provider Physician Assistant
DX: O21.9 Vomiting of pregnancy, unspecified (principal); O23.41 Unspecified infection of urinary tract in pregnancy, first trimester; N39.0 Urinary tract infection, site not specified; Z3A.09 9 weeks gestation of pregnancy
CPT/HCPCS: 36415; 71045; 80053; 81001; 81025; 83690; 85025; 96361; 96374; 96375; 99284; A9270; J2405; J2765; J7030

== ENCOUNTER 2025-02-15 12:09 | Inpatient (IN) | payer OTHER, MEDICAID, SELFPAY ==
[2025-02-15] VITALS (59 sets, daily range): BP systolic 106–137; BP diastolic 49–114; PULSE 65–179; RESP 16; TEMP 36.6–37.4; O2SAT 98–100; BMI 37.7
--- OUTSIDE RECORDS SUMMARY | 2025-02-15 12:24 | XMS_ITS | Clinical Summary ---
Author Organization [facility] Address [facility] [place] [address] Care Team Providers Care Political Researcher Name Role Phone None, Provider MD Primary Care Provider Unavaila ble Allergies No known active allergies Medications ondansetron 4 MG disintegrating tablet Take 1 tablet (4 mg total) by mouth every 8 (eight) hours as needed. 10 tablet 10/08/19 22 Active Additional Information Patient not taking.Reported on 12/19/2024 butalbital-acetami nophen-caffeine (FIORICET) 50-300-40 MG capsule Take 1 capsule by mouth every 4 (four) hours as needed. 08/23/19 25 Active guaiFENesin ER (MUCINEX) 600 MG 12 hr tabletIndications: Acute nonintractable headache, unspecified headache type,Fluid level behind tympanic membrane of both ears,Viral URI Take 1 tablet (600 mg total) by mouth 2 (two) times daily. 28 tablet 12/20/19 25 Active fluticasone propionate (FLONASE) 50 MCG/ACT nasal sprayIndications:A cute nonintractable headache, unspecified headache type,Fluid level behind tympanic membrane of both ears,Viral URI 1 spray by Nasal route daily as needed. 16 g 12/20/19 25 Active Encounters Date Type Department Care Team Description 12/19/2024 11:40 AM CDT Office Visit [address] [place] [address] Chance Jurado MD Headache (Pt is here for a headache, Pt states she woke up this morning with a headache, no c/o of cough, sore throat. She has taken ) 12/19/2024 Travel from Last 3 Months Immunizations Immunization Administration Dates Next Due Dtap (Acel-Immune) 04/25/2001,2000, 001 Hepatitis B Pediatric 2000,2000,04/20 Hib (Generic) 04/25/2001,2000,2000 MMR (MMRII) 06/04/2001 Pneumococcal (Prevnar 7) 04/25/2001,2000,0 2000 Polio IPV (Ipol) 04/25/2001,2000, 1 Tdap (Generic) 02/22/2012 Social History Tobacco Use Types Packs/Day Years Used Date Smoking Tobacco: Never Smokeless Tobacco: Never Tobacco Cessation:Counseling Given: No Alcohol Use Standard Drinks/Week Comments Never 0 (1 standard drink = 0.6 oz pur e alcohol) AUDIT-C Answer Date Recorded Frequency of Alcohol Consumption Never 07/27/2019 Average Number of Drinks Not on file 020 Frequency of Binge Drinking Not on file 12/2019 Estimated Date of Delivery Comme nts Yes 02/27/2025 Sex and Gender Information Value Date Recorded Sex Assigned at Not on file Legal Sex Female 4:46 PM CDT Gender Identity Not on file Sexual Orientation Not on file Last Filed Vital Signs Vital Sign Reading Time Taken Comments Blood Pressure 110/80 12/19/2024 11:27 AM CDT Pulse 112 12/19/2024 11:27 AM CDT Temperature 36.4 C (97.6 F) 12/19/2024 11:27 AM CDT Respiratory Rate 18 12/19/2024 11:27 AM CDT Oxygen Saturation 98% 12/19/2024 11:27 AM CDT Inhaled Oxygen Concentration - - Weight 100.2 kg (221 lb) 12/19/2024 11:27 AM CDT Height 167.6 cm (5' 6) 12/19/2024 11:27 AM CDT Body Mass Index 35.67 12/19/2024 11:27 AM CDT Plan of Treatment Health Maintenance Due Date Last Done Comments Annual Physical 2003 HPV Vaccines (1 - 3-dose series) 2015 Hepatitis C 2018 DTaP, Tdap and Td Vaccines (5 - Td or Tdap) 02/21/2022 02/22/2012, 04/25/2001, 2000, Additional history exists PHQ-2 (Physician [place]) 05/21/2024 COVID-19 Vaccine ( season) 2025 Cervical Cancer Screening Pap Smear (Age 21 to 29) Every 3 Years 09/20/2025 09/20/2022 Cervical Cancer Screening 09/20/2025 Hepatitis B Vaccines Completed 2000, 2000, 2000 Pneumococcal Vaccine: Pediatrics (0 to 5 Years) and At-Risk Patients (6 to 49 Years) Aged Out 04/25/2001, 2000, 2000 No longer eligible based on patient's age to complete this topic Meningococcal B Vaccine Aged Out No l onger eligible based on patient's age to complete this topic Meningococcal Vaccine Aged Out No thomas torito eligible based on patient's age to complete this topic RSV Immunization or 60+ Years (No Doses Required) Completed RSV Immunizations Under 20 Months Aged Out No longer eligible based on patient's age to complete this topic Procedures Procedure Name Priority Date/Time Associated Diagnosis Comments CYTOPATH CERV/VAG THIN LAYER Routine 09/20/2022 8:33 AM CDT from Last 3 Months or Most Recently Relevant to Health Maintenance Results * Cytopath Cerv/Vag Thin Layer (09/20/2022 8:33 AM CDT) THIN PREP PAP [address] [id number] Department of Pathology Pathology Report CERVICAL/VAGINAL PAP SMEAR REPORT Name: KODY RONQUILLO Age: 12 2000 (Age: 22) Location: [facility] Sex: F Collected Date: 09/20/2022 [facility] #: [id number] Date Received: 09/22/2022 Date Reported: 09/22/2022 Provider: KADI YOST MD INTERPRETATION ABNORMAL RESULT CERVICAL/ENDOCER VICAL: SATISFACTORY FOR EVALUATION. ENDOCERVICAL/TRA NSFORMATION ZONE COMPONENT PRESENT. ATYPICAL SQUAMOUS CELLS OF UNDETERMINED SIGNIFICANCE. 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 [facility] 09/20/2022 8:33 AM CDT 09/22/2022 8:33 AM CDT Comment:CERVICAL/ENDOCERVICA L Kadi Marina MD PATHOLOGY/CYTOLOGY ORDERABL ES Final Result [facility] [address] [place] [address], from Last 3 Months or Most Recently Relevant to Health Maintenance [place] [address] Care Teams Political Researcher Relationship Specialty Start Date End Date None, Provider, PCP - General 06/08/21
[2025-02-15 12:46] LABS: Hematocrit 36.0 % (37.0-47.0); Hemoglobin 12.4 g/dL (12.0-15.0); Immature Granulocyte Percent A 0.7 % (0-0.5); Lymphocytes Absolute Auto 2.53 K/mm3 (0.9-3.2); Mean Corpuscular HGB Conc 34.4 g/dl (32-36); Mean Corpuscular Hemoglobin 29.7 pg (26-34); Mean Corpuscular Volume 86.3 fl (80-100); Nucleated Red Blood Cells Absolute Auto 0.000 K/mm3 (0.0-0.012); Nucleated Red Blood Cells Perc 0.0 % (0.0-0.2); Platelet Count Result 229 k/mm3 (150-375); Red Blood Count 4.17 M/mm3 (4.2-5.4); White Blood Count 11.8 K/mm3 (4.5-10.0)
--- NOTE | 2025-02-15 12:49 | LDADM ---
This patient, Kathi Bee, was admitted to Labor/Delivery/Recovery 106 on 02/15/25 at 12:09. Plans for labor, pain management and were discussed with patient. Patient/family oriented to hospital policies and general routines including ID bracelet, bed and alarms, visiting hours, pain management, procedures, bathroom and other care routines, personal items, smoking policy, room service/diet and guest tray routines, security routines, and visiting hours. Patient/Family are encouraged to report perceived risks to care and to ask questions if they do not understand what they are told or what they should do. See OBIX for further documentation.
[2025-02-15 13:34] LABS: Syphilis IgG/IgM Antibody Non-Reactive (Nonreactive)
[2025-02-15] MEDS: LACTATED RINGERS 1,000 ML 125 ML IV CONT ×2 (13:38→14:27)
--- NOTE | 2025-02-15 14:36 | WPDANESEPP ---
Anes - Eval Pre Procedure Procedure: Labor Epidural Date/Time: 02/15/25 14:36 Surgeon: Oj Preop Diagnosis: Labor Pain Pre Op Diagnosis: Rupture of Membranes Patient Data Age: 24 Gender: F Height: 1.68 m Weight: 106 kg Last Vital Signs Temp 37.2 C 02/15/25 13:00 Pulse 75 02/15/25 14:15 BP 119/69 02/15/25 14:15 O2 Del Method Room Air 02/15/25 12:47 Allergies Allergy/AdvReac Type Severity Reaction Status Date / Time No Known Allergies Allergy Verified 02/06/25 14:46 Home Medications ?Medication ?Instructions ?Recorded ?Confirmed ?Type vit no.95-ferrous 1 tablet PO DAILY 02/06/25 02/15/25 History fumarate 28 mg-folic acid 800 mcg tablet () Laboratory Tests 02/15/25 12:30 WBC 11.8 H K/mm3 (4.5-10.0) RBC 4.17 L M/mm3 (4.2-5.4) Hgb 12.4 g/dL (12.0-15.0) Hct 36.0 L % (37.0-47.0) MCV 86.3 fl (80-100) MCH 29.7 pg (26-34) MCHC 34.4 g/dl (32-36) RDW 13.6 % (11.5-14.5) Plt Count 229 k/mm3 (150-375) MPV 10.3 fl (7.4-10.4) Immature Gran % (Auto) 0.7 H % (0-0.5) Neut % (Auto) 69.3 % (45.5-73.1) Lymph % (Auto) 21.5 % (18.3-44.2) [place] % (Auto) 7.2 % (2.6-8.5) Eos % (Auto) 0.8 % (0-4.4) Baso % (Auto) 0.5 % (0.2-1.2) Lymph # (Auto) 2.53 K/mm3 (0.9-3.2) [place] # (Auto) 0.9 H K/mm3 (0.1-0.6) Eos # (Auto) 0.1 K/mm3 (0-0.3) Baso # (Auto) 0.1 K/mm3 (0.0-0.1) Abs Immat Gran (auto) 0.08 H K/mm3 (0.00-0.031) Absolute Neuts (auto) 8.1 H K/mm3 (1.3-6.7) Absolute Nucleated RBC 0.000 K/mm3 (0.0-0.012) Nucleated RBC % 0.0 % (0.0-0.2) Syphilis IgG/IgM Ab Non-reactive (Nonreactive) Blood Type A Positive Antibody Screen Negative Patient hx anesthesia problems: none Family hx anesthesia problems: none Results Review: All pre-operative results and documents have been reviewed as part of the pre-operative evaluation. [facility] Family History Family History Other No pertinent family history Social History Social History Smoking status: Former smoker Substance use: never Lack of Transportation: No Lack of Food: Never True Current Housing: I Have Housing Concerned About Future Housing: No Difficulty Paying Gas/Electric Bills: No Difficulty Paying for Meds: No Currently Unemployed: No Education: High School Diploma/GED Difficulty w/ Childcare or Family Care: No Spiritual care concerns: No Exam Day of Procedure 02/15/25 14:36 Patient weight: overweight Heart: regular rate and rhythm Lungs: normal air movement Airway: Mallampati scale class II Neurological: alert and oriented
[2025-02-15 15:11] LABS: Cannabinoid Screen Urine Positive (Negative)
[2025-02-15] MEDS: OXYTOCIN 30 UNITS/NS 500 ML 30 UNITS/500 ML BAG IV CONT (15:28)
--- NOTE | 2025-02-15 16:51 | WPDOBADMIT ---
Obstetrics - Admit Note Admission Note: record reviewed. No pertinent additions to the history and/or any subsequent changes in the physical findings that are not consistent with the expected course of the were found. Additions to the history and/or subsequent changes in the physical findings follow. Pt admitted with SROM, DBL bilateral renal arteries
--- NOTE | 2025-02-15 17:49 | PM.OBPRVD ---
OB - Vaginal Delivery Note Procedure Delivery date: 02/15/25 Delivery augmentation: Pitocin Delivery monitor: External FHT and External Uterine Route of delivery: Laceration Description: None Specimen: No Quantitative Blood Loss (ml): 50 Anesthesia type: Epidural Disposition: Floor Complications: Other complications Narrative: head very slowly delivering. head attempted to rotate to MAHIN, CANx1, clamped and cut on perineum. McRobert's unable to release, suprapubiic pressure applied, Anterior shoulder released, the rest of the baby delivered quickly without incident. Baby handed to nursery. Baby Date of : 02/15/25 Time of : 17:40 Gestational Age by Date: 38 gender: Male presentation: vertex position: Left Occiput Anterior Placenta delivery description: Spontaneous and Expressed Cord Vessel Description: 3 Vessels, Nuchal Cord (x1), Tight and Clamped/Cut
[2025-02-15] MEDS: OXYTOCIN 30 UNITS/NS 500 ML 30 UNITS/500 ML BAG 125 UNITS IV CONT (18:15)
[2025-02-15] MEDS: ONDANSETRON INJ 4 MG/2 ML VIAL IV PUSH (19:46)
[2025-02-15] MEDS: BENZOCAINE 20% AER SPR (*SP) 56 GM CAN 1 SPRAY TOPICAL (19:51)
[2025-02-15] MEDS: WITCH HAZEL 40 PADS 1 PAD TOPICAL (19:51)
[2025-02-15] MEDS: ACETAMINOPHEN 325 MG TABLET 650 MG PO (21:32)
[2025-02-15] MEDS: IBUPROFEN 600 MG TABLET PO (21:33)
--- NOTE | 2025-02-15 22:22 | OBPPTRN ---
02/15/2025 at 2113 Patient in wheelchair transferred with baby (in crib) to post room #290. Kathi oriented to unit, room, information board, rooming in, admission packet and security measures. Patient verbalizes understanding.
[2025-02-16 00:20] VITALS: BP 114/74; PULSE 50; RESP 16; TEMP 36.6; O2SAT 99
[2025-02-16 05:39] LABS: Hematocrit 34.5 % (37.0-47.0); Hemoglobin 11.4 g/dL (12.0-15.0)
--- NOTE | 2025-02-16 05:59 | P.PNOB_ITS ---
OB - PN: Subj Subjective Date/time seen: 02/16/25 05:59 Interval history: pp day 1 doing well, tired baby having trouble keeping blood sugar up bottle and breast feeding OB - PN: Obj Data Labs 02/16/25 05:09 Labs: Laboratory Results - last 24 hr 02/15/25 02/16/25 12:30 05:09 WBC 11.8 H RBC 4.17 L Hgb 12.4 11.4 L Hct 36.0 L 34.5 L MCV 86.3 MCH 29.7 MCHC 34.4 RDW 13.6 Plt Count 229 MPV 10.3 Immature Gran % (Auto) 0.7 H Neut % (Auto) 69.3 Lymph % (Auto) 21.5 [place] % (Auto) 7.2 Eos % (Auto) 0.8 Baso % (Auto) 0.5 Lymph # (Auto) 2.53 [place] # (Auto) 0.9 H Eos # (Auto) 0.1 Baso # (Auto) 0.1 Abs Immat Gran (auto) 0.08 H Absolute Neuts (auto) 8.1 H Absolute Nucleated RBC 0.000 Nucleated RBC % 0.0 Urine Opiates Screen Negative Urine Methadone Screen Negative Ur Barbiturates Screen Negative Ur Phencyclidine Scrn Negative Ur Amphetamine Screen Negative U Benzodiazepines Scrn Negative Urine Cocaine Screen Negative U Cannabinoids Screen Positive A Syphilis IgG/IgM Ab Non-reactive Blood Type A Positive Antibody Screen Negative OB - PN A/P Plan day: 1 Time Spent With Patient Time: Total time spent is greater than 50% in coordination of care (as documented) at patient's floor/unit and/or counseling patient: Review of Systems 2 Review of Systems: All systems reviewed & are unremarkable except as noted in HPI and below Exam 2 Const: General: cooperative, healthy appearing and comfortable Resp: Effort & Inspection: normal respiratory effort Cardio: Rate: regular rate GI: Other: soft Neuro: General: patient oriented x3 Extrem: Right lower extremity: normal to inspection Left lower extremity: n ormal to inspection
--- NOTE | 2025-02-16 06:30 | PC.NURSE ---
Patient called out for feeding assistance. Infant was supplemented with formula at the last feeding due to a low glucose and no feeding in 6 hours. Baby is sucking on the pacifier and seems eager to feed. His blood sugar was checked and was WNL. Mom states that will suck on pacifier but not on the breast. We discussed the different feel of the pacifier in his mouth and how we need to get mom's nipple as far back into his mouth as possible to elicit the suck reflex. Baby is reluctant to open his mouth wide and sucks on his tongue. We tried for about 10 minutes to latch before we were able to get baby on with a sustained suckle. He is in football hold on the right breast. Mom has some nipple soreness and we reviewed need to tug infant's lower lip if it is tucked in. Baby has intermittent, audible swallows. He maintains latch and suckles regularly. Mom is encouraged to allow him to feed as long as he likes and to offer the second breast if desired. Patient will call out for assistance as needed. Primary RN updated.
[2025-02-16 07:40] VITALS: BP 129/75; PULSE 68; RESP 16; TEMP 36.6; O2SAT 98
[2025-02-16 08:00] VITALS: PULSE 68; RESP 16; O2SAT 98
[2025-02-16] MEDS: DOCUSATE SODIUM 100 MG CAPSULE PO (08:35)
[2025-02-16] MEDS: MULTIVIT/MIN/PREN/FOL AC/IRON TABLET 1 TAB PO (08:35)
--- NOTE | 2025-02-16 09:45 | PC.NURSE ---
Mother called out for a blood sugar before . Baby's accucheck was 52, WNL for his age. When taken back to the room, baby was sleepy and not showing any feeding cues, so we placed him next to mom in cross cradle hold. Mom complains of sore nipples. Both nipples are red with skin intact. Lanolin at bedside. Baby was grunting and acting like he was trying to pass a stool and so mom is encouraged to give him a little time, change his diaper, and if he is still sleepy, she is advised to hold him skin to skin for 15 minutes. Patient will call out for assistance. Primary RN updated.
--- NOTE | 2025-02-16 10:20 | PC.NURSE ---
Attempted to wake baby to latch again. He had a small meconium and mom changed his diaper. We tried stimulating him and using a wet wipe to wake him. Baby gave no effort to open his mouth or to latch. After a few minutes of trying to wake him, mom is encouraged to wait a half hour and try again. She will observe for feeding cues. Primary RN updated.
--- NOTE | 2025-02-16 11:00 | PC.NURSE ---
1100: Attempted to wake and latch . He is sleepy with some brief periods of being alert. He does root and gape occasionally but with each latch he pushes the nipple out and loses the latch. Mom is shown how baby keeps his tongue up on the roof of his mouth. We attempted on the left and right breast in cross cradle and football hold. We tried for 20 minutes before taking a break to allow mom and to rest. Mom is getting anxious and frustrated that baby will not feed. We discussed that since it has been 5 hours since the last feeding, we can give baby more time to rest and try again or we can consider pumping and supplementing with any pumped milk we get. Mom is educated on normal milk production expectations in the early period. Mom is open to trying any option suggested. We will reconvene and discuss the plan of care shortly. Discussed plan with primary RN. 1130: Returned to patient room with a nipple shield. This may help keep 's tongue down and help him maintain a latch between suckling bursts. Mom is open to trying the shield. We reviewed risks and benefits of shield use. Patient is educated to clean the shield between each use and that we will start pumping if we need to use the shield for 3 consecutive feedings. It took several tries to get the shield on top of baby's tongue. Once latched, baby suckles sleepily with encouragement. Baby was removed from the shield when mom complained of nipple pain and there was milk in the shield. Mom's nipple is pulled into the shield and appears to be a correct fit. Baby latched again, easily this time. Mom is shown how to keep baby's head and chin close to the breast without any nipple sliding in and out as he sucks. Baby was latched to the shield for about 10 minutes and fed for about 5 minutes. Baby had milk on his chin after the feeding. Mom is supported to know that colostrum is all baby needs at this time and that small amounts are perfect as he learns to take food orally. Patient will call for assistance with feeding as needed and knows to initiate another feeding in 2-3 hours. Primary RN is updated.
[2025-02-16] MEDS: IBUPROFEN 600 MG TABLET PO (12:24)
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
[2025-02-16 13:18] VITALS: BP 121/59; PULSE 55; RESP 16; TEMP 36.8; O2SAT 98
--- NOTE | 2025-02-16 14:23 | WPDANLDPN2 ---
Anes-Prog Note L&D Date/Time: 02/16/25 14:23 Comfortable throughout: labor and delivery Neuraxial method: epidural Epidural/Spinal procedure site: clean & non-tender Neuro status: Neuro function grossly intact. Vital Signs: Last Vital Signs Temp 36.8 C 02/16/25 13:18 Pulse 55 L 02/16/25 13:18 Resp 16 02/16/25 13:18 BP 121/59 L 02/16/25 13:18 Pulse Ox 98 02/16/25 13:18 O2 Del Method Room Air 02/15/25 12:47 Pain score (VAS): 0 I/O: Intake & Output 02/15/25 02/16/25 02/16/25 23:59 07:59 15:59 Output Total 125 Balance -125 Patient feedback: Patient satisfied with anesthetic care.
[2025-02-16 18:35] VITALS: BP 122/83; PULSE 79; RESP 16; TEMP 36.9; O2SAT 98
[2025-02-17 08:20] VITALS: BP 120/80; PULSE 76; RESP 18; TEMP 36.6; O2SAT 97
[2025-02-17] MEDS: MULTIVIT/MIN/PREN/FOL AC/IRON TABLET 1 TAB PO (09:22)
--- NOTE | 2025-02-17 09:45 | PC.NURSE ---
Met with patient regarding discharge and her need for a breast pump. She is already signed up for [facility]. Described to the patient the 2 pumps we have that she can get through her insurance. She is unsure which one she prefers so the names were written on her white board and she will look them up and let us know her choice. She is going to eat breakfast now and we will go over her discharge teaching when she is done. Primary RN updated.
--- NOTE | 2025-02-17 10:59 | PC.NURSE ---
Patient viewed the discharge video Mother & Baby Care, The First Two Weeks. Patient was given the opportunity and encouraged to ask questions. Patient verbalized understanding of information shared and has been given the mother/baby guide for home reference.
--- NOTE | 2025-02-17 11:05 | PC.NURSE ---
1105: Patient called out because she has been unable to wake baby to feed since the circumcision. We tried to latch for several minutes without any effort from him to gape or suck. We then used some formula to entice him to the breast. It took several attempts but he did finally latch well. He suckled off and on and needed stimulation to keep going. Mom was only able to get him to feed for 2 minutes before he let go. She tried the other breast in football and cross cradle without any success. We tried to entice him with formula to get him to latch but we were unable. Mom is advised to give baby 15ml of formula at this time since it has been several hours since the last feeding. Discussed with patient the importance of stimulating her breasts at least 8 times a day, whether it is baby to breast or pumping. Patient would like a [employer] insurance pump and one will be provided before discharge. She already has a [facility] appointment scheduled and does not need a referral. Primary RN updated. 1230: Consulted with mother concerning needs. She has latch on pain that dissipates as baby suckles. Hydrogel pads and handout on sore nipples given. Mother is feeding appropriately for growth of and understands stimulating to eat if needed. Baby has been supplemented with formula several times overnight. has had appropriate feedings in the last 24 hours and meets the outcomes for weight, output, blood sugar and jaundice at this time. Reinforced understanding of milk production, transition of milk, signs of adequate intake, transition of stool, prevention/relief of engorgement, plugged ducts, mastitis, responsive watching for feeding cues, the different methods of stimulating infant to breastfeed 1-3 hours after the start of the last feeding, community resources, and when to call a provider using the resource of the feeding sheet along with the mom and baby guide. A Your Guide to booklet was given and we reviewed returning to work and pumping. We measured her for her flange sizing and looked at her pump and the recommended settings as well as the user manual. She has a QR code for a free set of Zomee flanges. She is encouraged to call the office for any further needs after discharge. Mother voiced understanding of the information shared, is confident to continue effectively her infant at home, when to call for assistance, denies any additional assistance or education at this time. Reported to the Primary RN.
[2025-02-17] MEDS: TETANUS,DIPHTHERIA,AC PERTUSSIS ADULT (0.5 ML) BOOSTRIX IM (12:22)
[2025-02-18 10:24] VITALS: BP 121/85; PULSE 92; RESP 18; TEMP 36.9; O2SAT 100
--- NOTE | 2025-02-19 15:01 | P.DS_ITS ---
DS: Admitting Diagnosis Discharge Date 02/17/25 Admitting Diagnosis labor OB - DS: Summary OB Procedures : None OB Procedures Intrapartum: Spontaneous Vag Delivery OB Procedures: : None Peripartum Data Laceration Description: None Time Spent with Patient Time attestation: Total time spent providing and/or coordinating discharge services: Discharge Plan Discharge Attending physician on discharge: Dragan Mcwilliams Consulting providers: Liza Borden; Muriel Camacho; Krystal Dean Discharging Clinician: Dragan Mcwilliams Patient Disposition: Home Activity: may shower, as tolerated and pelvic rest Diet: as tolerated Discharge Instructions: Education: Mom and Baby Guide Given to: Mother Follow-Up: Call your delivering provider's office for an appointment to be seen in: 4 Weeks Mom and baby should come to the [facility] for the follow-up appointment. Appointment Date/Time: February 18, 2025 at 10:00 am What to expect at your follow-up visit: Physical Assessment Call [phone] if you are unable to keep your appointment time. BREAST CARE: * Wear a snug supportive bra. * For engorgement discomfort: Breast Feeding: * Apply warm moist washcloths * Express milk as needed to relieve engorgement * Wear loose clothing * For sore nipples: * Identify correct latch-on * Apply warm moist washcloths before and after nursing * Air dry nipples after nursing * May apply Lansinoh cream to nipples EPISIOTOMY/PERINEAL CARE: * Until bleeding stops, use your rowan bottle after urinating * Change your pad frequently throughout the day * You may take sitz baths several times a day (fill your bathtub with warm water and soak for 20 minutes.) Do NOT bathe in the water * No tub baths until seen by your physician - You may shower ACTIVITY: * Rest as much as possible. * Do not exercise or lift anything heavier than your baby (such as laundry or other children.) * Avoid stairs or driving as much as possible. * Do not put anything into the vagina. No douching, tampons, or sexual activity until seen by physician. NOTIFY PHYSICIAN IF YOU HAVE ANY QUESTIONS OR IF ANY OF THE FOLLOWING SYMPTOMS OCCUR: * If your episiotomy or incision becomes red, swollen, or more painful than what you have experienced in the hospital. * If your vaginal bleeding becomes foul smelling. * If your vaginal bleeding becomes more heavy than a period or if your bleeding changes from pink to bright red. However, you may pass an occasional walnut- sized clot once or twice for the first week . * If you experience a sharp, shooting pain in you calves. * If you discover a hard, reddened area on your breast or if you experience flu-like symptoms. DIET: * Eat regular, well-balanced meals. * Drink plenty of fluids daily. If , drink to thirst. Patient Language: Norwegian Stand Alone Forms: General Discharge Information Follow-up/Referrals: Dragan Mcwilliams MD [Physician, [employer] SET UP OPERATOR] - 4 Weeks Discharge Medications: New ibuprofen 600 mg Tablet 600 mg PO Q6H PRN (Reason: Cramping) Qty: 30 0RF Continued PNV no.95-ferrous fumarate-FA [] 28 mg iron- 800 mcg tablet 1 tablet PO DAILY Date of admission: 02/15/25 12:09 Primary Care Provider: UNKNOWN,DOCTOR Admitting Provider: Dragan Mcwilliams Attending physician on admission: Dragan Mcwilliams Condition: Stable
== END 2025-02-17 13:14 | disposition home or self-care (01) | DRG 807 ==
LOC: ANHLDR 12:22 → ANHOB2 22:09
PROVIDERS: Advanced Practice Midwife; Admitting Provider Obstetrics & Gynecology; Visit Provider Obstetrics & Gynecology
DX: O69.1XX0 Labor and delivery complicated by cord around neck, with compression, not applicable or unspecified (principal); Z37.0 Single live birth; Z3A.38 38 weeks gestation of pregnancy; O66.0 Obstructed labor due to shoulder dystocia
CPT/HCPCS: 36415; 80307; 85014; 85018; 85025; 86593; 86850; 86900; 86901; 90715; A9270; J2405; J2590; J2795; J7120